=== PATIENT | female | born 1980 ===

== ENCOUNTER 2020-02-12 07:00 | Day surgery (SDC) | payer OTHER ==
[~2020-02-12] VITALS: Ht 157.5 cm; Wt 61.2 kg
[~2020-02-12 07:00] MED LIST: FLEXERIL5 MG PO; NAPRELAN500 M1 PO
[2020-02-13] MEDS ORDERED: Tylenol #3 PO (09:10)
== END 2020-02-13 08:00 | disposition home or self-care (01) ==
LOC: CIR LITO 07:00 → CIR.AMB 07:00 → OB/GYN 07:00 → EDSTATUS 08:30 → SURG-SUITE 17:39 → O/R 17:39 → CIR LITO 02-13 08:00 → SURG-SUITE 02-13 09:59
PROVIDERS: ATTEND Obstetrics & Gynecology
DX: D25.1 Intramural leiomyoma of uterus (principal); N72 Inflammatory disease of cervix uteri; N81.11 Cystocele, midline; Z20.828 Contact with and (suspected) exposure to other viral communicable diseases

== ENCOUNTER 2021-08-06 15:16 | Emergency (ER) | payer OTHER ==
[~2021-08-06] VITALS: Ht 157.5 cm; Wt 68.0 kg
[~2021-08-06 15:16] MED LIST changes: +Tylenol #3 PO
[2021-08-06] MEDS ORDERED: ARIPIPRAZOLE2 MG PO (15:31)
[2021-08-06] MEDS ORDERED: BUPROPION XL300 MG PO (15:31)
[2021-08-06] MEDS ORDERED: CLONAZEPAM0.5 MG PO (15:31)
[2021-08-06] MEDS ORDERED: CEFUROXIME500 MG PO (17:53)
== END 2021-08-06 18:08 | disposition home or self-care (01) ==
LOC: ER 15:16
DX: N39.0 Urinary tract infection, site not specified (principal)